=== PATIENT | female | born 1995 | race Caucasian/White ===

== ENCOUNTER 2023-09-24 00:38 | Emergency (ER) | payer SELFPAY ==
[2023-09-24 00:45] VITALS: BP 127/74; PULSE 100; RESP 16; TEMP 37.2; O2SAT 97; BMI 34.5
--- NOTE | 2023-09-24 01:05 | ED_ITS ---
HPI - General Adult General Stated complaint: ear infection Time Seen by Provider: 09/24/23 00:44 History of Present Illness HPI narrative: 28-year-old female presents for 24 hours of left ear pain. Recently diagnosed with pneumonia, started on Augmentin at outside hospital. States that she was not able to sleep due to the pain. Has not taken anything for pain prior to arrival. Pain refers down to her jaw and down her neck. Denies fevers, decreased hearing, facial swelling, other complaints. Related Data Previous Rx's Medication Instructions Recorded hydrocodone 5 mg-acetaminophen 325 1 tab PO Q8H PRN pain #7 tabs 09/24/23 mg tablet Review of Systems Review of Systems Narrative: Negative except as noted above Exam Narrative Exam Narrative: Const: Awake, alert, no acute distress Eyes: PERRL, EOMI, conjunctiva normal ENT: Atraumatic, extensively poor dentition, tympanic membranes normal bilaterally, no mastoid tenderness bilaterally Skin: Warm, Dry, intact, no rashes Neuro: AO x3, CN II-XII grossly intact, moves all extremities Psych: affect normal, mood normal, not suicidal, not homicidal Course Orders Ordered: Discontinued Medications Hydrocodone Bitart/Acetaminophen (Hydrocodone/Acet 5/325 Prepack) 1 bottle MISC DIRECTED ONE Stop: 09/24/23 01:04 Ketorolac Tromethamine (Ketorolac 30 Mg/Ml Vial) 30 mg IM NOW ONE Stop: 09/24/23 01:04 Medical Decision Making Differential Diagnosis Differential Diagnosis: Ear pain, dental pain, cellulitis MDM Narrative Medical decision making narrative: Nontoxic patient with left ear pain. No evidence of otitis externa, no evidence of mastoiditis. Patient does have extensive dental caries and states that she recently cracked tooth. I strongly suspect that patient's pain is referred dental pain to her ear. There is no swelling, trismus, evidence of sepsis. Patient is already on Augmentin, which is appropriate therapy for dental infection and has a 1 week prescription, which is also appropriate treatment. Denies possibility of , given Toradol and [place] for pain. Patient strongly advised to follow up with a dentist. Discharge Plan Departure Patient Disposition: Home Clinical Impression: Acute facial pain Instructions: DI for Dental Pain Activity Restrictions/Additional Instructions: Please follow up with a dentist for your cracked teeth. Continue taking the Augmentin as prescribed. Take Motrin with the prescribed medications Prescriptions: New hydrocodone-acetaminophen 5-325 mg tablet 1 tab PO Q8H PRN (Reason: pain) Qty: 7 0RF Stand Alone Forms: Patient Portal/API
[2023-09-24 01:29] VITALS: PULSE 99; O2SAT 97
[2023-09-24 01:30] VITALS: PULSE 98; O2SAT 97
[2023-09-24 01:45] VITALS: PULSE 69; O2SAT 97
[2023-09-24 02:00] VITALS: BP 127/74; PULSE 71; O2SAT 97
[2023-09-24] MEDS: TRAMADOL 50 MG PREPACK 1 BOTTLE MISC (02:04)
[2023-09-24] MEDS: KETOROLAC 30 MG/ML VIAL IM (02:04)
== END 2023-09-24 02:18 | disposition home or self-care (01) ==
PROVIDERS: Emergency Provider Emergency Medicine
DX: R51.9 Headache, unspecified (principal)
CPT/HCPCS: 96372; 99283; J1885